=== PATIENT | male | born 1965 | race Caucasian/White ===

== ENCOUNTER 2020-11-13 13:51 | Emergency (ER) | payer BC, SELFPAY ==
--- NOTE | 2020-11-13 14:01 | ED.WOUNDLAC ---
HPI - Wound/Laceration General Chief Complaint: Skin/Abscess/Foreign Body Stated Complaint: leg laceration Time Seen by Provider: 11/13/20 13:55 Source: patient, family and RN notes reviewed Mode of arrival: ambulatory Limitations: no limitations History of Present Illness HPI narrative: 55-year-old male presents to the [facility] with multiple lacerations to the posterior lower legs bilaterally. Patient states that he was using a saw when it fell to the back of him hit the ground and cut his legs. Unknown last Tdap. Bleeding is controlled. Happened approximately 1-1/2 to 2 [address] to arrival [address]: home Patient tetanus UTD: No Context: accidental Associated symptoms: pain Related Data Home Medications Medication Instructions Recorded Confirmed amlodipine 5 mg PO DAILY 11/13/20 11/13/20 atorvastatin 10 mg PO BID 11/13/20 11/13/20 duloxetine 40 mg PO DAILY 11/13/20 11/13/20 hydrocodone-acetaminophen [Vicodin] 1 tablet PO Q4-6H 11/13/20 11/13/20 lisinopril 20 mg PO DAILY 11/13/20 11/13/20 meloxicam 15 mg PO DAILY 11/13/20 11/13/20 Allergies Allergy/AdvReac Type Severity Reaction Status Date / Time No Known Allergies Allergy Verified 11/13/20 14:09 Review of Systems Review of Systems: All systems reviewed & are unremarkable except as noted in HPI and below Constitutional: Constitutional: Reports no additional constitutional complaints, Denies chills and Denies fever(s) Eyes: Eyes: Reports no additional eye complaints and Denies change in vision ENT: Reports system reviewed and no additional complaints, except as documented Cardiovascular: Cardiovascular: Reports no additional cardiovascular complaints Respiratory: Respiratory: Reports no additional respiratory complaints Gastrointestinal: Gastrointestinal: Reports no additional gastrointestinal complaints Musculoskeletal: Musculoskeletal: Reports no additional musculoskeletal complaints Integumentary/Breasts: Skin/Breast: Reports as per HPI Comments: Multiple lacerations posterior right and left calf Neurologic: Reports system reviewed and no additional complaints, except as documented Psychiatric: Psychiatric: Reports no additional psychiatric complaints Allergic/Immunologic: Allergic/Immunologic: Reports no additional allergic/immunologic complaints PMFSH Comments At the time of my signature, I reviewed and agree with the nursing past medical, surgical, social, and family history. There is no relevant family history pertinent to the patient complaint. Exam Const: General: healthy appearing, no acute distress and alert Nutritional Appearance: well nourished and obese Orientation/consciousness: patient oriented x3 Limitations: no limitations HENMT: Head: normal to inspection Eyes: Pupils: Equal, round and reactive pupils present Neck: Neck: normal visual inspection, no lymphadenopathy and no meningeal signs Chest: Chest palpation & inspection: normal inspection of the chest Resp: Effort & Inspection: normal respiratory effort and no use of accessory muscles Auscultation: clear to auscultation bilaterally, no crackles, no rales, no rhonchi and no wheezes Cardio: Rate: regular rate Rhythm: regular rhythm Back/Spine/Pelvis: Back: no CVA tenderness Skin: Wounds: wounds noted Other: For abrasions, a semicircular to the posterior left calf mid. On the more medial aspect 2 lacerations measuring approximately 4 cm in diameter. Right mid calf 3 lacerations, does not go into the muscle. Neuro: General: patient oriented x3, moves all extremities, no meningeal signs and no focal motor deficits Speech: normal speech Gait exam (Neuro): Normal gait present Extrem: General: normal to inspection and full ROM Right upper extremity: normal to inspection Left upper extremity: normal to inspection Upper/lower leg/hip images: 1. For abrasions, 2 lacerations, bleeding controlled. Full range of motion of the ankle, sensation intact at the foot a
[2020-11-13] MEDS: LIDOCAINE HCL 1% LOCAL INJ 20 ML VIAL 5 ML INFILTRATE (14:07)
[2020-11-13] MEDS: TETANUS,DIPHTHERIA,AC PERTUSSIS ADULT (0.5 ML) BOOSTRIX IM (14:07)
[2020-11-13 14:10] VITALS: BP 152/83; PULSE 94; RESP 18; TEMP 36.2; O2SAT 98
== END 2020-11-13 15:05 | disposition home or self-care (01) ==
PROVIDERS: Emergency Provider Nurse Practitioner; PCP Internal Medicine
DX: S81.812A Laceration without foreign body, left lower leg, initial encounter (principal); S81.811A Laceration without foreign body, right lower leg, initial encounter; W29.3XXA Contact with powered garden and outdoor hand tools and machinery, initial encounter; Z23 Encounter for immunization; E78.00 Pure hypercholesterolemia, unspecified; I10 Essential (primary) hypertension
CPT/HCPCS: 12004; 90471; 90715; 99213; G0463